=== PATIENT | male | born 1960 | race Caucasian/White ===

== ENCOUNTER 2021-12-02 18:10 | Inpatient (IN) | payer OTHER, SELFPAY ==
[~2021-12-02] VITALS: Ht 190.5 cm; Wt 106.6 kg
[2021-12-02 18:18] VITALS: BP_SYST 136
[2021-12-02] MEDS ORDERED: MORPHINE 4 MG INJ. 4 MG/ML VIAL IVP ONE (21:15)
[2021-12-02] MEDS ORDERED: ONDANSETRON HCL 4 MG/2 ML VIAL IVP ONE (21:15)
[2021-12-02 21:21] LABS: BASOPHILS % (AUTO) 0.3 % (0.0-2.0); EOSINOPHILS % (AUTO) 0.4 % (0.0-4.0); HEMATOCRIT 41.5 % (36-54); HEMOGLOBIN 14.1 g/dL (14.0-18.0); LYMPHOCYTES # (AUTO) 1.7 K/uL (1.0-5.5); LYMPHOCYTES % (AUTO) 14.4 % (20.5-51.5); MEAN CORPUSCULAR HEMOGLOBIN 30 pg (27-31); MEAN CORPUSCULAR HGB CONC 34 % (32-36); MEAN CORPUSCULAR VOLUME 89 fL (79.0-98.0); MONOCYTES # (AUTO) 0.7 K/uL (0.0-1.0); MONOCYTES % (AUTO) 5.7 % (1.7-9.3); NEUTROPHILS # (AUTO) 9.1 K/uL (1.8-7.7); NEUTROPHILS % (AUTO) 79.2 % (40.0-70.0); PLATELET COUNT (AUTO) 165 K/uL (130-430); RED BLOOD CELL COUNT(AUTO) 4.66 MIL/uL (4.2-6.2); RED CELL DISTRIBUTION WIDTH 13.2 % (9.0-15.0); WHITE BLOOD COUNT (AUTO) 11.5 K/uL (4.8-10.8)
[2021-12-02 21:27] LABS: CALCIUM 9.2 mg/dL (8.4-11.0); CREATININE 1.2 mg/dL (0.55-1.30); POTASSIUM 3.4 mmol/L (3.5-5.1)
[2021-12-02 21:33] LABS: ALBUMIN 3.8 g/dL (3.4-4.8); TOTAL BILIRUBIN 0.8 mg/dL (0.0-1.0)
[2021-12-02] MEDS ORDERED: DIATR MEGLU/DIATRIZ SOD 30 ML SOLUTION PO ONE (21:56)
[2021-12-02 23:27] LABS: BILIRUBIN,URINE NEGATIVE (NEGATIVE); BLOOD, URINE NEGATIVE (NEGATIVE); CLARITY/URINE CLEAR (CLEAR); COLOR,URINE YELLOW (YELLOW); GLUCOSE,URINE NEGATIVE (NEGATIVE); KETONES,URINE NEGATIVE (NEGATIVE); LEUKOCYTE ESTERASE ,URINE NEGATIVE (NEGATIVE); NITRITE, URINE NEGATIVE (NEGATIVE); PROTEIN URINE NEGATIVE (NEGATIVE); UROBILINOGEN,URINE 0.2 (0.2-1.0)
[2021-12-03] MEDS ORDERED: AMPICILLIN SODIUM/SULBACTAM NA 3 GM in NS 100 ML IV ONE (00:45)
[2021-12-03] MEDS ORDERED: ONDANSETRON HCL 4 MG/2 ML VIAL IVP ONE (00:45)
[2021-12-03] MEDS ORDERED: MORPHINE 4 MG INJ. 4 MG/ML VIAL IVP ONE (00:45)
[2021-12-03] MEDS ORDERED: AMPICILLIN SODIUM/SULBACTAM NA 3 GM VIAL ONE (01:12)
[2021-12-03 04:55] VITALS: BP_SYST 138
[2021-12-03] MEDS ORDERED: ACETAMINOPHEN 325 MG TABLET PO PRN ×2 (07:30→08:00)
[2021-12-03] MEDS ORDERED: NALOXONE HCL 0.4 MG/ML AMP (NARCAN) IVP PRN (07:30)
[2021-12-03] MEDS: NACL 0.9% 1,000 ML IV SCH ×2 (07:30→17:30)
[2021-12-03] MEDS ORDERED: ALBUTEROL SULFATE 0.083% 2.5 MG/3 ML VIAL.NEB INH PRN (07:30)
[2021-12-03 08:00] VITALS: BP_SYST 111
[2021-12-03 09:42] LABS: BASOPHILS % (AUTO) 0.3 % (0.0-2.0); EOSINOPHILS # (AUTO) 0.1 K/uL (0.0-0.4); EOSINOPHILS % (AUTO) 1.2 % (0.0-4.0); HEMATOCRIT 38.4 % (36-54); HEMOGLOBIN 13.2 g/dL (14.0-18.0); LYMPHOCYTES # (AUTO) 1.3 K/uL (1.0-5.5); LYMPHOCYTES % (AUTO) 15.5 % (20.5-51.5); MEAN CORPUSCULAR HEMOGLOBIN 31 pg (27-31); MEAN CORPUSCULAR HGB CONC 34 % (32-36); MEAN CORPUSCULAR VOLUME 89 fL (79.0-98.0); MONOCYTES # (AUTO) 0.6 K/uL (0.0-1.0); MONOCYTES % (AUTO) 7.3 % (1.7-9.3); NEUTROPHILS # (AUTO) 6.2 K/uL (1.8-7.7); NEUTROPHILS % (AUTO) 75.7 % (40.0-70.0); PLATELET COUNT (AUTO) 108 K/uL (130-430); RED BLOOD CELL COUNT(AUTO) 4.32 MIL/uL (4.2-6.2); RED CELL DISTRIBUTION WIDTH 12.7 % (9.0-15.0); WHITE BLOOD COUNT (AUTO) 8.2 K/uL (4.8-10.8)
[2021-12-03 10:01] LABS: ALBUMIN 3.2 g/dL (3.4-4.8); CALCIUM 8.3 mg/dL (8.4-11.0); CREATININE 1.08 mg/dL (0.55-1.30); POTASSIUM 3.4 mmol/L (3.5-5.1); TOTAL BILIRUBIN 0.9 mg/dL (0.0-1.0)
[2021-12-03] MEDS ORDERED: LEVOFLOXACIN IN DEXTROSE 5 % 100 ML IV SCH (10:15)
[2021-12-03 10:44] VITALS: BP_SYST 138
[2021-12-03] MEDS ORDERED: metroNIDAZOLE 500 mg/NS 100 ML IV ONE (10:45)
[2021-12-03 11:29] VITALS: BP_SYST 118
[2021-12-03] MEDS: LEVOFLOXACIN IN DEXTROSE 5 % 100 ML IV SCH (12:21)
[2021-12-03] MEDS: metroNIDAZOLE 500 mg/NS 100 ML IV SCH ×2 (14:08→21:14)
[2021-12-03] MEDS: HYDROcodone/ACETAMIN 5-325 MG TAB (NORCO/ VICODIN) PO PRN ×2 (14:12→21:19)
[2021-12-03 15:30] VITALS: BP_SYST 114
[2021-12-03 20:10] VITALS: BP_SYST 122
[2021-12-04] MEDS: NACL 0.9% 1,000 ML IV SCH ×3 (01:12→23:33)
[2021-12-04 01:35] VITALS: BP_SYST 126
[2021-12-04] MEDS: metroNIDAZOLE 500 mg/NS 100 ML IV SCH ×3 (05:41→21:35)
[2021-12-04] MEDS ORDERED: DIATR MEGLU/DIATRIZ SOD 30 ML SOLUTION PO ONE (07:37)
[2021-12-04 07:38] LABS: CALCIUM 8.4 mg/dL (8.4-11.0); CREATININE 0.94 mg/dL (0.55-1.30); POTASSIUM 3.6 mmol/L (3.5-5.1); TOTAL BILIRUBIN 0.9 mg/dL (0.0-1.0)
[2021-12-04 07:42] LABS: BASOPHILS % (AUTO) 0.3 % (0.0-2.0); EOSINOPHILS # (AUTO) 0.1 K/uL (0.0-0.4); EOSINOPHILS % (AUTO) 1.8 % (0.0-4.0); HEMATOCRIT 36.7 % (36-54); HEMOGLOBIN 12.7 g/dL (14.0-18.0); LYMPHOCYTES # (AUTO) 1.4 K/uL (1.0-5.5); LYMPHOCYTES % (AUTO) 19.1 % (20.5-51.5); MEAN CORPUSCULAR HEMOGLOBIN 31 pg (27-31); MEAN CORPUSCULAR HGB CONC 35 % (32-36); MEAN CORPUSCULAR VOLUME 90 fL (79.0-98.0); MONOCYTES # (AUTO) 0.5 K/uL (0.0-1.0); MONOCYTES % (AUTO) 7.6 % (1.7-9.3); NEUTROPHILS # (AUTO) 5.1 K/uL (1.8-7.7); NEUTROPHILS % (AUTO) 71.2 % (40.0-70.0); PLATELET COUNT (AUTO) 104 K/uL (130-430); RED CELL DISTRIBUTION WIDTH 12.8 % (9.0-15.0); WHITE BLOOD COUNT (AUTO) 7.2 K/uL (4.8-10.8)
[2021-12-04 09:07] LABS: AFP, TUMOR MARKER 1.7 ng/mL (0.0-8.3)
[2021-12-04] MEDS: LEVOFLOXACIN IN DEXTROSE 5 % 100 ML IV SCH (10:28)
[2021-12-04 11:30] VITALS: BP_SYST 134
[2021-12-04] MEDS ORDERED: LEVOFLOXACIN IN DEXTROSE 5 % 100 ML IV SCH (12:15)
[2021-12-04 15:04] VITALS: BP_SYST 130
[2021-12-04] MEDS: MORPHINE 4 MG INJ. 4 MG/ML VIAL IVP PRN ×2 (17:20→21:38)
[2021-12-04] MEDS: ONDANSETRON HCL 4 MG/2 ML VIAL IVP PRN ×2 (17:20→21:36)
[2021-12-04 20:26] VITALS: BP_SYST 132
[2021-12-05] VITALS (7 sets, daily range): BP systolic 112–153
[2021-12-05] MEDS: metroNIDAZOLE 500 mg/NS 100 ML IV SCH ×3 (05:32→22:05)
[2021-12-05] MEDS: NACL 0.9% 1,000 ML IV SCH ×2 (09:30→20:39)
[2021-12-05] MEDS: LEVOFLOXACIN IN DEXTROSE 5 % 100 ML IV SCH (11:23)
[2021-12-05 11:32] LABS: INR 1.1 (0.80-1.20)
[2021-12-05] MEDS ORDERED: LIDOCAINE 1%, 20 ML MDV 20 ML ONE (11:43)
[2021-12-05] MEDS: MORPHINE 4 MG INJ. 4 MG/ML VIAL IVP PRN ×2 (14:24→20:37)
[2021-12-06 00:29] VITALS: BP_SYST 148
[2021-12-06 04:06] VITALS: BP_SYST 141
[2021-12-06] MEDS: NACL 0.9% 1,000 ML IV SCH (04:08)
[2021-12-06] MEDS: metroNIDAZOLE 500 mg/NS 100 ML IV SCH (05:15)
[2021-12-06 08:00] VITALS: BP_SYST 145
[2021-12-06] MEDS: ONDANSETRON HCL 4 MG/2 ML VIAL IVP PRN (08:59)
[2021-12-06] MEDS ORDERED: LEVO500T90 PO (09:14)
[2021-12-06] MEDS ORDERED: METR-154 PO (09:14)
[2021-12-06 10:31] VITALS: BP_SYST 145
== END 2021-12-06 11:15 | disposition home or self-care (01) | DRG 392 ==
LOC: SED 18:10 → SMU 12-03 00:52
PROVIDERS: ADMIT Internal Medicine; ATTEND Internal Medicine
PROC: 0FB03ZX Excision of Liver, Percutaneous Approach, Diagnostic (ICD-10-PCS; principal; 2021-12-05)
DX: K57.32 Diverticulitis of large intestine without perforation or abscess without bleeding (principal); C78.7 Secondary malignant neoplasm of liver and intrahepatic bile duct; K86.9 Disease of pancreas, unspecified; R16.0 Hepatomegaly, not elsewhere classified; K86.89 Other specified diseases of pancreas; K76.9 Liver disease, unspecified; I10 Essential (primary) hypertension; Z20.822 Contact with and (suspected) exposure to COVID-19
CPT/HCPCS: 36415; 74170-TC; 76376; 76705; 77012; 80053; 81003; 82105; 83690; 83735; 85025; 85610-TC; 85730-TC; 86301; 96365; 96375; 96376; 99285; J0295; J1956; J2001; J2270; J2405; J3490; Q9964; Q9967